=== PATIENT | female | born 1995 | race African-American/Black ===

== ENCOUNTER 2017-11-25 11:35 | Emergency (ER) | payer MEDICAID ==
[~2017-11-25 11:35] MED LIST: HYDROCODON-ACE1 EAC7 PO; IBUPROFEN600 MG PO; PRENATAL COMPLE1 TAB PO
[2017-11-25 11:50] VITALS: Ht 175.3 cm
[2017-11-25] MEDS ORDERED: VOLTAREN75 MG PO (13:37)
[2017-11-25] MEDS ORDERED: ROBAXIN-750750 MG PO (13:37)
[2017-11-25 13:50] VITALS: BP 112/082
== END 2017-11-25 13:52 | disposition home or self-care (01) ==
LOC: D.ER 11:35
DX: S49.91XA Unspecified injury of right shoulder and upper arm, initial encounter (principal); Y04.2XXA Assault by strike against or bumped into by another person, initial encounter; Y93.89 Activity, other specified; Y92.89 Other specified places as the place of occurrence of the external cause; M25.511 Pain in right shoulder; F17.200 Nicotine dependence, unspecified, uncomplicated

== ENCOUNTER 2018-04-05 13:25 | Emergency (ER) | payer SELFPAY ==
[~2018-04-05] VITALS: Ht 175.3 cm; Wt 80.5 kg
[~2018-04-05 13:25] MED LIST changes: +ROBAXIN-750750 MG PO; +VOLTAREN75 MG PO
[2018-04-05 13:37] VITALS: Ht 175.3 cm; Wt 80.5 kg
[2018-04-05 13:57] LABS: APPEARANCE CLEAR (CLEAR); COLOR YELLOW (YELLOW)
[2018-04-05 13:58] LABS: BILIRUBIN NEGATIVE (NEGATIVE); GLUCOSE NEGATIVE (NEGATIVE); KETONE NEGATIVE (NEGATIVE); NITRITE NEGATIVE (NEGATIVE); PROTEIN NEGATIVE (NEGATIVE); UROBILINOGEN NORMAL (NORMAL)
[2018-04-05 14:14] LABS: HEMATOCRIT 35.6 % (36.0-48.0); HEMOGLOBIN 12.7 g/dL (12-16); MCH 31.8 pg (26.0-34.0); MCHC 35.7 g/dL (31.0-37.0); MCV 89.2 fL (80.0-100.0); MEAN PLATELET VOLUME 10.7 fL (7.4-10.4); PLATELET COUNT 129 10x3/uL (130-400); RBC 3.99 10x6/uL (4.00-5.40); RDW 12.9 % (11.5-14.5); WBC 4.6 10x3/uL (4.8-10.8)
[2018-04-05 14:26] LABS: HCG SERUM NEGATIVE (NEGATIVE)
[2018-04-05 14:29] LABS: ALBUMIN 3.5 g/dL (3.4-5.0); BILIRUBIN - TOTAL 0.37 mg/dL (0.2-1.3); CALCIUM 8.4 mg/dL (8.5-10.1); CARBON DIOXIDE 22.4 mmol/L (21.0-32.0); POTASSIUM - SERUM 3.4 mmol/L (3.5-5.1); PROTEIN - SERUM 6.3 g/dL (6.4-8.2)
[2018-04-05 15:03] LABS: EOSINOPHILS 4 % (0-7); LYMPHOCYTES 59 % (15-50); MONOCYTES 2 % (2-11); NEUTROPHILS 35 % (40-80)
[2018-04-05 15:04] LABS: ELLIPTOCYTES OCC; ROULEAUX OCC; TARGET CELLS OCC
[2018-04-05 15:09] LABS: PLATELET ESTIMATE NORMAL
[2018-04-05 17:30] VITALS: BP 117/54
[2018-04-05 17:32] LABS: BILIRUBIN - DIRECT 0.11 mg/dL (0.00-0.30)
[2018-04-05 17:36] LABS: BILIRUBIN - INDIRECT 0.26 mg/dL (0.00-1.00); BILIRUBIN - TOTAL 0.37 mg/dL (0.2-1.3)
== END 2018-04-05 17:41 | disposition home or self-care (01) ==
LOC: D.ER 13:25
PROVIDERS: Emergency Medicine
DX: N93.8 Other specified abnormal uterine and vaginal bleeding (principal); F17.200 Nicotine dependence, unspecified, uncomplicated

== ENCOUNTER 2018-06-08 22:05 | Emergency (ER) | payer SELFPAY ==
[~2018-06-08] VITALS: Ht 175.3 cm; Wt 81.6 kg
[2018-06-08 22:08] VITALS: Ht 175.3 cm; Wt 81.6 kg
[2018-06-08] MEDS ORDERED: TORADOL10 MG PO (22:34)
[2018-06-08] MEDS ORDERED: NEURONTIN 300300 MG PO (22:34)
[2018-06-08 22:49] VITALS: BP 128/70
== END 2018-06-08 22:49 | disposition home or self-care (01) ==
LOC: D.ER 22:05
DX: M54.2 Cervicalgia (principal)

== ENCOUNTER 2019-04-21 12:59 | Emergency (ER) | payer SELFPAY ==
[~2019-04-21] VITALS: Ht 175.3 cm; Wt 77.3 kg
[~2019-04-21 12:59] MED LIST changes: +NEURONTIN 300300 MG PO; +TORADOL10 MG PO
[2019-04-21 13:09] VITALS: Ht 175.3 cm; Wt 77.3 kg
[2019-04-21] MEDS ORDERED: MUCINEX DM ER1 EAC1 PO (17:57)
[2019-04-21] MEDS ORDERED: ZPAK PO (17:57)
[2019-04-21 18:58] VITALS: BP 119/50
== END 2019-04-21 18:58 | disposition home or self-care (01) ==
LOC: D.ER 12:59
DX: J40 Bronchitis, not specified as acute or chronic (principal); J06.9 Acute upper respiratory infection, unspecified

== ENCOUNTER 2019-08-28 17:50 | Emergency (ER) | payer OTHER ==
[~2019-08-28] VITALS: Ht 175.3 cm; Wt 0.0 kg
[~2019-08-28 17:50] MED LIST changes: +MUCINEX DM ER1 EAC1 PO; +ZPAK PO
[2019-08-28 17:58] VITALS: Ht 175.3 cm; Wt 0.0 kg
[2019-08-28] MEDS ORDERED: FLUTICASONE PRO16 GM NASAL (18:41)
[2019-08-28 18:59] VITALS: BP 128/82
== END 2019-08-28 18:59 | disposition home or self-care (01) ==
LOC: D.ER 17:50
DX: J30.9 Allergic rhinitis, unspecified (principal); R51 Headache; H92.03 Otalgia, bilateral